=== PATIENT | female | born 1985 | race Caucasian/White ===

== ENCOUNTER 2017-02-08 11:30 | Outpatient (CLI) ==
[2014-11-28 20:04] VITALS: BMI 18.0
--- NOTE | 2017-02-08 11:46 | DI ---
EXAM: Left shoulder three view HISTORY: Pain COMPARISON: None FINDINGS: The bones are normal. The glenohumeral joint and acromioclavicular joint are normal. No f ocal soft tissue abnormality. Visualized portion of the chest is normal. IMPERSSION: Normal examination.
== END 2017-02-08 11:31 | disposition home or self-care (01) ==
LOC: RAD 11:30
PROVIDERS: ATTEND Family Medicine
DX: M25.512 Pain in left shoulder (principal)

== ENCOUNTER 2017-02-20 09:20 | Outpatient (CLI) ==
[2014-11-28 20:04] VITALS: BMI 18.0
--- NOTE | 2017-02-20 15:28 | MRI ---
EXAM: MRI left shoulder without contrast COMPARISON: Left shoulder radiographs 02/08/2017. HISTORY: Left shoulder pain. Injury doing polyps. TECHNIQUE: Multiplanar noncontrast MR images of the left shoulder were acquired using a [employer]. FINDINGS: There is mild diffuse rotator cuff tendinosis most pronounced along the supraspinatus. M inimal bursal surface fraying of the supraspinatus at the acromion measuring 5 mm in extent. No par tial or full-thickness rotator cuff tear. Trace fluid in the subacromial/subdeltoid bursa. The glenoid labrum is grossly unremarkable on this non arthrographic study. No paralabral cyst iden tified. The glenohumeral joint space is preserved. Low-level marrow edema within the anterior port ion of the humeral neck extending deep to the bicipital groove related to stress reaction or contusi on without evidence of an acute fracture. No focal marrow lesion or cortical destruction. Physiolog ic amount of fluid within the joint. The long head of the biceps is located within the bicipital groove and is intact. Minimal capsular hypertrophy at the acromioclavicular joint with minimal lateral downsloping of the acromion. No evidence of an os acromiale or abnormal widening of the acromioclavicular joint space. No soft tissue mass identified. IMPRESSION: 1. Low-level marrow edema within the anterior portion of the humeral neck which may represent stres s reaction or contusion. No evidence of an acute fracture. 2. Mild rotator cuff tendinosis with bursal surface fraying of the supraspinatus. No evidence of a rotator cuff tear. 3. Trace fluid in the subacromial/subdeltoid bursa. 4. Mild capsular hypertrophy at the acromioclavicular joint with minimal lateral downsloping of the acromion.
== END 2017-02-20 09:21 | disposition home or self-care (01) ==
LOC: RAD 09:20
PROVIDERS: ATTEND Family Medicine
DX: M25.512 Pain in left shoulder (principal)

== ENCOUNTER 2018-04-12 14:00 | Outpatient (CLI) ==
[2014-11-28 20:04] VITALS: BMI 18.0
--- NOTE | 2018-04-12 15:16 | CT ---
EXAM: CT Abdomen without contrast. CT Pelvis without contrast. HISTORY: Left-sided abdominal pain/pressure. Hematuria. COMPARISON: 09/16/2012. TECHNIQUE: Multiple axial images of the abdomen and pelvis were obtained without intravenous contras t. Images were reformatted in the sagittal and coronal plane. FINDINGS: Please note that evaluation of the abdominal and pelvic structures is limited due to lack of intravenous contrast. The lung bases are clear. Osseous structures are intact. The liver, gallbladder, pancreas, spleen, and adrenal glands demonstrate normal contour. The bilater al nonobstructing calculi measuring up to 0.3 cm on the right and 0.4 cm on the left. There is no hy dronephrosis or hydroureter although there is a 0.3 cm calcification in the distal left ureter just a nisa the ureteral vesicle junction on axial image 123. Bladder is collapsed. Uterus is absent. The bowel is normal in course and caliber without evidence for obstruction or inflammatory process. There has been prior appendectomy. No free fluid or free air identified. Mild atherosclerotic calci fications are present. IMPRESSION: 1. A 0.3 cm distal left ureteral calculus just above the ureteral vesicle junction without left hydr oureter/hydronephrosis. 2. Additional bilateral nephrolithiasis with larger stone burden on the left.
== END 2018-04-12 14:01 | disposition home or self-care (01) ==
LOC: RAD 14:00
PROVIDERS: ATTEND Family Medicine
DX: R10.30 Lower abdominal pain, unspecified (principal); R31.9 Hematuria, unspecified

== ENCOUNTER 2019-05-17 15:36 | Emergency (ER) ==
[2019-05-17 15:44] VITALS: BP 113/74; TEMP 97.7; BMI 18.2
[2019-05-17 16:41] LABS: URINE PREGNANCY TEST NEGATIVE (NEGATIVE)
--- NOTE | 2019-05-17 17:12 | CT ---
EXAM: CT of the abdomen and pelvis without contrast. HISTORY: Left flank pain. Hematuria. PROCEDURE: Contiguous axial CT images of the abdomen and pelvis without contrast with coronal and sa gittal reformats. FINDINGS: The liver, gallbladder, pancreas, spleen and adrenal glands are normal in appearance. Ther e is a 7 mm calcification in the proximal left ureter at the level of the ureteropelvic junction with moderate left hydronephrosis. There are nonobstructive calcifications in both kidneys measuring up to 4 mm. The abdominal aorta is within normal limits in diameter. The appendix is surgically absent . The visualized loops of bowel are normal in appearance. No free air in the abdomen or pelvis. Th ere is trace free fluid in the cul-de-sac. The uterus is surgically absent. The bladder is minimall y filled which limits the evaluation. The bones and soft tissues are unremarkable. Impression: Left ureterolithiasis with moderate left hydronephrosis as described. Nonobstructive bilateral nephrolithiasis. Trace free fluid in the cul-de-sac. Hysterectomy.
[2019-05-17] MEDS ORDERED: ZOFRAN 4 MG/2 ML IVP STA (17:18)
[2019-05-17] MEDS ORDERED: PHENERGAN 25 MG/ML VIAL IM STA (17:18)
[2019-05-17] MEDS ORDERED: MORPHINE 4 MG/ML SYRINGE IM STA (17:19)
--- NOTE | 2019-05-17 17:26 | ED.PDOC ---
General ED Provider: Dr. BUD LEE Chief Complaint: Back Pain Stated Complaint: LEFT FLANK PAIN AND HEMATURIA X 3 DAYS . THE PAIN HAD INCREASED MARKEDLY AROUND 7 AM. Time Seen by Physician: 15:40 Mode of Arrival: Walk-In Information Source: Patient Exam Limitations: No limitations Primary Care Provider: KASIE MAO Nursing and Triage Documentation Reviewed and Agree: Yes Does patient meet sepsis criteria?: No System Inflammatory Response Syndrome: Not Applicable Sepsis Protocol: For patient's 13 years and over: Temp is 96.8 and below OR 101 and greater Pulse >90 BPM Resp >20/minute Acutely Altered Mental Status Are patient's symptoms suggestive of a new infection, such as: -Pneumonia -Skin, Soft Tissue -Endocarditis -UTI -Bone, Joint Infection -Implantable Device -Acute Abdominal Infection -Wound Infection -Meningitis -Blood Stream Catheter Infection -Unknown Complaint Exam - Complaint/Exam Patient Complains of: Reports: Dysuria (LEFT FLANK PAIN AND HEMATURIA ) Onset/Duration: 3 DAYS Symptoms Are: Still present Timing: Constant Episodes of Voiding Over Last 12 Hours: 3 Initial Severity: Moderate Current Severity: Moderate Location of Pain: Reports: Left, Flank, Suprapubic Character: Reports: Constant pressure, Bloody urine Aggravating: Reports: Urination Alleviating: Reports: None Associated Signs and Symptoms: Reports: Back pain, Dysuria, Appetite change, Nausea. Denies: Diaphoresis, Fever, Hematuria, Constipation, Blood in stool, Rectal pain, Vomiting, Decreased urine output, Increased urine frequency, Increased thirst, Decreased activity, Lethargy, Abdominal Pain, Bubble bath use , Vaginal bleeding, Vaginal discharge, Genital swelling, Genital blisters, Retained foreign body Ectopic Risk Factors: Reports: None Ovarian Torsion Risk Factors: Reports: Reproductive age Surgical Obstruction Risk Factors: Reports: None RH Status: Unknown Abdominal Findings: Present: None Review of Systems - Review Of Systems Constitutional: Reports: No symptoms Eyes: Reports: No symptoms Ears, Nose, Mouth, Throat: Reports: No symptoms Respiratory: Reports: No symptoms Cardiac: Reports: No symptoms GI: Reports: No symptoms : Reports: Dysuria, Hematuria Musculoskeletal: Reports: No symptoms Skin: Reports: No symptoms Neurological: Reports: No symptoms Endocrine: Reports: No symptoms Hematologic/Lymphatic: Reports: No symptoms All Other Systems: Reviewed and Negative Past Medical History - Past Medical History Previously Healthy: Yes Endocrine: Reports: None Cardiovascular: Reports: None Respiratory: Reports: None Hematological: Reports: None Gastrointestinal: Reports: None Genitourinary: Reports: Kidney stones Neuro/Psych: Reports: None Musculoskeletal: Reports: None Cancer: Reports: None Last Menstrual Period: unknown - Surgical History General Surgical History: Reports: None - Family History Family History: Reports: None - Social History Smoking Status: Current every day smoker, Heavy tobacco smoker Hx Substance Use: No Alcohol Screening: None Physical Exam - Physical Exam Appearance: Well-appearing, No pain distress, Well-nourished Eyes: JOSELITO, EOMI, Conjunctiva clear ENT: Ears normal, Nose normal, Oropharynx normal Respiratory: Airway patent, Breath sounds clear, Breath sounds equal, Respirations nonlabored Cardiovascular: RRR, Pulses normal, No rub, No murmur GI/: Soft, Nontender, No masses, Bowel sounds normal, No Organomegaly Musculoskeletal: Normal strength, ROM intact, No edema, No calf tenderness Skin: Warm, Dry, Normal color Neurological: Sensation intact, Motor intact, Reflexes intact, Cranial nerves intact, Alert, Oriented Psychiatric: Affect appropriate, Mood appropriate Re-Evaluation - Re-Evaluation Time of Re-Evaluation: 17:00 Status: Improved Vital Signs Stable: Yes Pain Level: 3/10 Appearance: NAD Lungs: Clear Skin: Warm and Dry Neuro: Alert and Oriented X3 CV: RRR - Re-Evaluation Time of Re-Evaluation: 17:40 Status: Unchanged Vital Signs Stable: Yes Appearance: NAD Skin: Warm and Dry Neuro: Alert and Oriented X3 CV: RRR Physician Notification - Case Discussed Physician Notified: SIXTO CALIX Time of Notification: 17:40 (HE WOULD CONSULT ON THE PT ) Critical Care Note - Critical Care Note Total Time (mins): 0 Course - Course Hematology/Chemistry: 05/17/19 16:02 05/17/19 16:02 Orders, Labs, Meds: Lab Review 05/17/19 05/17/19 05/17/19 16:02 16:02 16:16 WBC 17.11 H RBC 4.01 L Hgb 12.4 Hct 38.2 MCV 95.3 MCH 30.9 MCHC 32.5 RDW Coeff of Yoli 12.8 Plt Count 261 Immature Gran % (Auto) 0.4 Neut % (Auto) 85.5 Lymph % (Auto) 9.0 L Mcminn % (Auto) 4.6 Eos % (Auto) 0.1 Baso % (Auto) 0.4 Immature Gran # (Auto) 0.1 Neut # (Auto) 14.6 H Lymph # (Auto) 1.5 Mcminn # (Auto) 0.8 Eos # (Auto) 0.0 Baso # (Auto) 0.1 Sodium 135.0 Potassium 4.72 Chloride 100.4 Carbon Dioxide 24.6 Anion Gap 14.72 BUN 8.3 Creatinine 0.87 Estimated GFR (MDRD) 74.00 BUN/Creatinine Ratio 9.54 Glucose 106.0 Calcium 9.22 Total Bilirubin 0.60 AST 26.5 ALT 21.6 Alkaline Phosphatase 68.4 Total Protein 7.63 Albumin 4.48 Globulin 3.15 Albumin/Globulin Ratio 1.42 Urine Color Yellow Urine Clarity Clear Urine pH 8.5 Ur Specific [place] 1.020 Urine Protein Negative Urine Glucose (UA) Negative Urine Ketones Trace Urine Blood Trace-intact Urine Nitrite Negative Urine Bilirubin Negative Urine Urobilinogen 0.2 Ur Leukocyte Esterase Negative Urine Microscopic RBC 0-2 Ur Squamous Epith Cells Not present Urine Test 05/17/19 16:16 WBC RBC Hgb Hct MCV MCH MCHC RDW Coeff of Yoli Plt Count Immature Gran % (Auto) Neut % (Auto) Lymph % (Auto) Mcminn % (Auto) Eos % (Auto) Baso % (Auto) Immature Gran # (Auto) Neut # (Auto) Lymph # (Auto) Mcminn # (Auto) Eos # (Auto) Baso # (Auto) Sodium Potassium Chloride Carbon Dioxide Anion Gap BUN Creatinine Estimated GFR (MDRD) BUN/Creatinine Ratio Glucose Calcium Total Bilirubin AST ALT Alkaline Phosphatase Total Protein Albumin Globulin Albumin/Globulin Ratio Urine Color Urine Clarity Urine pH Ur Specific [place] Urine Protein Urine Glucose (UA) Urine Ketones Urine Blood Urine Nitrite Urine Bilirubin Urine Urobilinogen Ur Leukocyte Esterase Urine Microscopic RBC Ur Squamous Epith Cells Urine Test Negative Orders Category Date Time Status CBC W/ AUTO DIFF Stat LAB 05/17/19 16:02 Completed COMPREHENSIVE METABOLIC PANEL Stat LAB 05/17/19 16:02 Completed URINALYSIS C & S IF INDICATED Stat LAB 05/17/19 16:16 Completed URINE Stat LAB 05/17/19 16:16 Completed Morphine Sulfate [Morphine 4 mg/ml Syringe] MEDS 05/17/19 17:19 Discontinued 4 mg IM ONCE STA Ondansetron HCl/Pf [Zofran 4 mg/2 ml] MEDS 05/17/19 17:18 Stop Req 4 mg IVP ONCE STA Promethazine HCl [Phenergan 25 mg/ml Vial] MEDS 05/17/19 17:18 Discontinued 25 mg IM ONCE STA CT ABD/PEL WO RENAL STONE PROT Stat RADS 05/17/19 15:55 Completed Medications Discontinued Medications Generic Name Dose Route Start Last Admin Trade Name Jody PRN Reason Stop Dose Admin Morphine Sulfate 4 mg 05/17/19 17:19 Morphine 4 Mg/Ml Syringe IM 05/17/19 17:20 ONCE STA Ondansetron HCl 4 mg 05/17/19 17:18 Zofran 4 Mg/2 Ml IVP 05/17/19 17:19 ONCE STA Promethazine HCl 25 mg 05/17/19 17:18 Phenergan 25 Mg/Ml Vial IM 05/17/19 17:19 ONCE STA Vital Signs: Temp Pulse Resp BP Pulse Ox 05/17/19 15:36 97.7 F 96 H 20 113/74 98 Departure - Departure Time of Disposition: 19:00 Disposition: TSF SHORT-TRM HOSP Discharge Problem: Renal stones Instructions: Kidney Stones (ED) Condition: Good Pt referred to PMD for follow-up: Yes IPMP verified?: No Additional Instructions: Please call your Family Physician as soon as possible to schedule a follow-up appointment. Allergies/Adverse Reactions: Allergies butorphanol tartrate [From Stadol] Adverse Reaction (Verified 05/17/19 15:44) Anxiety codeine Adverse Reaction (Verified 05/17/19 15:44) Vomiting Home Medications: Ambulatory Orders Ciprofloxacin HCl [Cipro] 500 mg PO Q12HR 05/17/19 Transfer Form Completed: Yes Disposition Discussed With: Patient, Family
[2019-05-17] MEDS ORDERED: TORADOL IVP STA (19:08)
== END 2019-05-17 19:33 | disposition short-term general hospital (02) ==
LOC: ED 15:36
DX: N20.0 Calculus of kidney (principal); F17.210 Nicotine dependence, cigarettes, uncomplicated
CPT/HCPCS: 36415; 80053; 81001; 81025; 85025; 96372; 96374; 99285